=== PATIENT | female | born 1990 | race Caucasian/White ===

== ENCOUNTER 2023-01-19 10:49 | Emergency (ER) | payer BC ==
[~2023-01-19] VITALS: Ht 167.6 cm; Wt 61.0 kg
[2023-01-19 10:56] VITALS: O2SAT 98
[2023-01-19 17:17] VITALS: BP 129/71; PULSE 72; RESP 15; TEMP 98.3
== END 2023-01-19 17:18 | disposition home or self-care (01) ==
LOC: ER 10:49
DX: S62.302A Unspecified fracture of third metacarpal bone, right hand, initial encounter for closed fracture (principal); W18.39XA Other fall on same level, initial encounter; Y93.89 Activity, other specified; Y92.89 Other specified places as the place of occurrence of the external cause; Y99.8 Other external cause status
CPT/HCPCS: 29125; 73130; 81025; 99283